=== PATIENT | female | born 1940 | race Asian ===

== ENCOUNTER 2019-07-18 09:08 | Inpatient (IN) | payer MEDICARE ==
[~2019-07-18] VITALS: Ht 157.5 cm; Wt 51.0 kg
[2019-07-18 08:48] VITALS: BP 179/91
[~2019-07-18 09:08] MED LIST: OXYC1TAB15 PO; OXYC1TAB6 PO; PARO30TA45 PO; TRAZ-118 PO
--- NOTE | 2019-07-18 10:00 | NUR ---
Admitted a 78 year old female who came in from [facility] ER due to back and hip pain. She arrived via stretcher at 0850 accompanied by transport personnel. She was alert, awake, oriented on room air with gomez catheter in place. Patient was placed in comfotable position, call light placed within reach, Dr. Guzman notified of admission.
[2019-07-18 11:02] VITALS: BP 159/90
--- NOTE | 2019-07-18 12:17 | HP ---
ADMIT DATE: 07/18/2019 HISTORY OF PRESENT ILLNESS: The patient is a 78-year-old Azeri [place] female patient who came to the Emergency Room complaining of pain in her left hip and left leg going on for the last 4-5 days. She also complained of the lower back pain. The pain has started about 4-5 days ago. The patient, however, is a very poor historian. She was investigated in the Emergency Room and her clinical complaints corresponds with the left sciatic nerve. The patient has significant pain with movement of her left hip and leg. She also has a history of recent falls. Her lab work was unremarkable. She has had multiple imaging modalities including a CT scan of the lumbar spine as well as CT scan of the pelvis and it showed that she has severe compression fracture of T12 with residual open fracture cleft. This results in mild focal kyphosis and moderate central canal stenosis at the T12-L1, additional central canal stenosis up to moderate at L4-L5. MRI could further assess stenosis if there is persistent concern. She has no pelvic fracture identified. Prominent left inguinal lymph nodes correlated with left lower extremity inflammation and others. The CT scan of the head showed no acute intracranial finding, mild atrophy and chronic microangiopathic white matter changes. X-ray, she had x-ray of her left femur, which showed no fracture. Her chest x-ray was mild right perihilar infiltrate, one 3-cm left upper lobe nodule, likely calcified granuloma. Given the severe pain and radiation to her left lower extremity and the findings of the CT scan of the lumbar spine. The patient was transferred to [facility] to arrange for an MRI to consult the interventional radiologist for vertebroplasty if deemed suitable. PAST MEDICAL HISTORY: Significant for hypertension, Parkinson disease. She is also known to have osteoarthritis, osteoporosis, anxiety, bipolar disorder, and dementia. PAST SURGICAL HISTORY: Significant for back surgery, left foot surgery, bilateral cataract extraction. ALLERGIES: She has no known drug allergies. FAMILY HISTORY: She has 7 brothers scattered all over the [place] according to her. Both her parents are . She has 3 sons. Her eldest son of heart attack. SOCIAL HISTORY: She is , lives with a friend. She does not smoke or drink alcohol. 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 MEDICATIONS: She is currently on following medications: She is on metoprolol tartrate 25 mg twice a day, hydrocodone/APAP ____ one tablet every 6 hours, gabapentin 300 mg at bedtime, duloxetine 60 mg daily, trazodone 150 mg at bedtime, aripiprazole for Abilify 2.5 mg twice a day. She is on hydroxyzine 25 mg every 4 hours as needed, Ambien 10 mg at bedtime, carbidopa/levodopa 25/100 three times a day. She is on potassium chloride 20 mEq once a day, ondansetron 4 mg every 8 hours and cholecalciferol 50,000 units once a week. REVIEW OF SYSTEMS: As per history of present illness. PHYSICAL EXAMINATION: GENERAL: On arrival to the Emergency Room, she looked somewhat pale, but no jaundice, cyanosis or thyromegaly. No jugular venous distention. No limb edema. VITAL SIGNS: Her heart rate was 70, blood pressure was 149/100, temperature 97.1, respiratory rate was 16, and oxygen saturation was 96% on room air. HEAD, EYES, EARS, NOSE AND THROAT: Showed normocephalic, atraumatic. NECK: Supple. HEART: Showed normal first and second heart sounds. No gallop, rub or murmur. CHEST: Clear to auscultation. No crepitation or rhonchi. ABDOMEN: Distended, soft, nontender. NEUROLOGIC: She is awake, alert, responding appropriately. All cranial nerves intact. EXTREMITIES: She moves all extremities without difficulty. She is mostly bed bound. LABORATORY DATA: Her lab work on arrival to the Emergency Room showed a white cell count 6200, hemoglobin 14.5, hematocrit 42, MCV 99 and platelet count 218,000. Her chemistry showed a serum sodium 140, potassium 3.9, chloride 103, bicarbonate 30, anion gap of 7, BUN 12, creatinine was 0.7, estimated GFR was 81 mL per minute. Her glucose was 96, calcium was 9.6, magnesium 2.3. Total bilirubin, AST, ALT, alkaline phosphatase were normal. Total protein was 8.7, albumin was 4.6, and lipase was 49. Her prothrombin time was 9.3, INR 0.9, aPTT 27 and D-dimer was 0.57 mg/dL. Urinalysis was essentially unremarkable. Toxic screen was negative. Her chest x-ray was basically showed mild right perihilar infiltrate, one 3 cm left upper lobe nodules, likely calcified granuloma. Her x-ray of the femur showed no fracture identified. There is mildly decreased femoral head and neck offset superolaterally. The joint spaces of the left hip and knee are well maintained. For the patient's age, a Chapman catheter is noted, correlate for mild femoroacetabular impingement. Head CT scan showed no acute intracranial finding, mild atrophy and chronic microangiopathic white matter changes. Her CT scan of the lumbar spine and pelvis showed the patient has severe compression fracture of T12 with residual open fracture cleft. This results in mild focal kyphosis and moderate central canal stenosis at T12-L1. The patient has additional central canal stenosis is up to moderate at L4-L5. MRI could further assess stenosis if there is persistent concern. She has no pelvic fracture identified. Prominent left inguinal lymph nodes. Given all the findings, the patient was transferred to [facility] to arrange for an MRI and to consult the interventional radiologist to see if she is suitable for kyphoplasty. MAGI KERNS MD DR: TREVON/katherine JOB#: [id number] / [id number]
--- NOTE | 2019-07-18 13:17 | RAD ---
MRI Lumbar Spine without contrast History: Compression fracture Technique: Multiplanar, multi sequential noncontrast MR imaging was performed of the lumbar spine. Comparison: CT exam the same day and also lumbar radiographs May 20, 2016 Findings: There is motion degradation. There is severe compression deformity of L1 as seen on CT, progression of height loss since the previous radiographs although degree of compression deformity present in 2017. Fracture is not associated with significant marrow edema. There is mild grade 1 anterior spondylolisthesis T12-L1. There is mild osseous retropulsion greater superiorly There is again fairly advanced degenerative disc disease at L3-4, to lesser degree L4-5, minimally of more superior levels and mild disc desiccation at L5-S1. Conus terminates near the superior aspect of L2. There is 3.3 cm T2 hyperintense lesion of the left kidney more likely a cyst. T12-L1: There is mild buckling of the ligamentum flavum and facet degenerative change. In combination with osseous retropulsion of the superior aspect of L1, there is overall mild narrowing of the lateral recesses bilaterally. Neural foramina are adequate. There is small hemangioma of the left T12 vertebral body. L1-L2: There is very shallow protrusion in the far right lateral recess. There is minimal osseous retropulsion of L1. There is minimal narrowing of the far lateral recesses bilaterally, central canal adequate. There is ghon-qy-dlacxhpr narrowing of the neural foramina bilaterally. L2-L3: There is facet degenerative change. There is very minimal disc osteophyte complex. There is mild narrowing of the far right lateral recess. There is very mild posterior narrowing of the left neural foramen, right neural foramen adequate. L3-L4: There is very minimal disc osteophyte complex. There is posterior annular tear. There is minimal buckling of the ligamentum flavum. There is minimal narrowing of the far lateral recesses bilaterally. There is moderate to severe narrowing of the left neural foramen by disc osteophyte complex and facet with contact exiting left L3 nerve root, minimal narrowing of the right neural foramen. L4-L5: There is moderate buckling of the ligamentum flavum and mild facet degenerative change. There is minimal disc osteophyte complex and bulge. There is moderate to severe spinal stenosis, some preserved subarachnoid space. There is lateral stenosis bilaterally greater on the right. There is moderate to severe neural foramina compromise bilaterally by facets and disc osteophyte complex. L5-S1: Spinal canal is adequate. There is bquy-rt-tsvjbvub right facet degenerative change, to a lesser degree on the left. Neural foramina are overall adequate. Impression: 1. There is old severe L1 compression deformity, progression of height loss since 2017 exam, not associated with significant marrow edema. There is mild osseous retropulsion. 2. There is moderate to severe spinal stenosis L4-5, some preserved subarachnoid space, lateral recess stenosis bilaterally. 3. There is multilevel lumbar degenerative disc disease, also mild spondylosis. 4. There is neural foramina compromise as stated greatest on the left at L3-4 and bilaterally at L4-5. Electronically signed by: Masoud Delgado MD (07/18/2019 1:14 PM) [id number]
[2019-07-18] MEDS: oxyCODONE/APAP 5/325 1 TAB TABLET PO PRN ×2 (14:07→19:35)
[2019-07-18] MEDS: PARoxetine 10 MG TABLET PO SCH (14:07)
[2019-07-18 15:03] VITALS: BP 103/70
[2019-07-18] MEDS ORDERED: METO25TA4 PO (16:02)
[2019-07-18] MEDS ORDERED: CARB1TAB22 PO (16:08)
[2019-07-18] MEDS ORDERED: DULO60CA45 PO (16:08)
[2019-07-18] MEDS ORDERED: ARIP2TAB3 PO (16:08)
[2019-07-18] MEDS ORDERED: GABA300C18 PO (16:08)
[2019-07-18] MEDS ORDERED: POTA20TA4 PO (16:09)
[2019-07-18] MEDS ORDERED: CHOL500021 PO (16:10)
[2019-07-18] MEDS ORDERED: ONDA-84 PO (16:10)
[2019-07-18] MEDS ORDERED: ONDANSETRON PF 4 MG/2 ML VIAL. IVP PRN (16:30)
[2019-07-18] MEDS: MORPHINE SULFATE 4 MG/ML VIAL. IV PRN (16:38)
[2019-07-18 19:40] VITALS: BP 125/75
[2019-07-18] MEDS: traZODone 50 MG TABLET. PO SCH (20:59)
[2019-07-18 23:41] VITALS: BP 103/70
[2019-07-19] MEDS: oxyCODONE/APAP 5/325 1 TAB TABLET PO PRN ×4 (03:22→16:39)
[2019-07-19 03:46] LABS: HEMATOCRIT 36.1 % (36.0-47.0); HEMOGLOBIN 12.5 g/dL (12.0-15.5); RED BLOOD COUNT 3.73 x10^6/uL (3.50-5.40); RED CELL DISTRIBUTION WIDTH 13.5 % (11.5-14.5); WHITE BLOOD COUNT 6.8 x10^3/uL (4.0-11.0)
[2019-07-19 03:55] VITALS: BP 137/83
[2019-07-19 04:03] LABS: PROTHROMBIN TIME PATIENT 12.3 SEC (11.7-14.0)
[2019-07-19 04:20] LABS: ALBUMIN 3.4 g/dL (3.4-5.0); ALBUMIN/GLOBULIN RATIO 1.1 (1.0-1.7); CALCIUM 8.4 mg/dL (8.5-10.1); CREATININE 0.8 mg/dL (0.6-1.0); GFR 69.7; POTASSIUM 3.6 mmol/L (3.5-5.1); TOTAL BILIRUBIN 0.6 mg/dL (0.2-1.0); TOTAL PROTEIN 6.6 g/dL (6.4-8.2)
[2019-07-19] MEDS: MORPHINE SULFATE 4 MG/ML VIAL. IV PRN ×4 (04:39→20:44)
[2019-07-19 07:40] VITALS: BP 135/84
[2019-07-19] MEDS: PARoxetine 10 MG TABLET PO SCH (08:10)
--- NOTE | 2019-07-19 10:20 | PN ---
DATE: SUBJECTIVE: The patient is resting, slightly propped up in bed, no apparent distress. She continued to complain of pain in her left lower back radiating to her left lower extremity, although the pain medication, said that it helped and she has slept well last night. She has had her MRI done yesterday, which basically showed that she has old severe L1 compression deformity with progression of height loss since 2017 exam, not associated with significant marrow edema. There is mild osseous retropulsion. There is efisxhgd-vc-jkayuf spinal stenosis at L4-L5, some preserved subarachnoid space, lateral recess stenosis bilaterally. There is multilevel lumbar degenerative disk disease. There is neural foramina compromise on the left at L3-L4 and bilateral L4-L5. I spoke with Dr. Kline and said that vertebroplasty cannot be done with this vertebra plana and also it is already old and I did consult Dr. Browning to see whether any surgical intervention can be done to help with her severe back pain that radiates down to her left lower extremity. PHYSICAL EXAMINATION: GENERAL: When I examined her this morning, she looked well and was clearly in no apparent respiratory distress. No pallor, jaundice, cyanosis or thyromegaly. No jugular venous distention. No limb edema. VITAL SIGNS: Her heart rate was 79, blood pressure was 135/84, temperature was 98, respiratory rate was 16, and oxygen saturation was 97%. The rest of clinical exam is stable. LABORATORY DATA: Her lab work showed a white cell count of 6800, hemoglobin 12.5, hematocrit 36, MCV 97 and platelet count of 190. Her BUN is 16, creatinine 0.8 with normal electrolytes. Her prothrombin time and INR are within normal range. ASSESSMENT: In summary, this is a 78-year-old female of [place] descent who presented with severe back pain radiating to left lower extremity. MRI showed that she has severe old L1 compression deformity with progression of height loss since 2017. She apparently has a riyngqsj-pb-zfosbd spinal stenosis at L4-L5. She has multilevel lumbar degenerative disk disease, also mild spondylosis. There is also neural foramina compromise as stated, greatest on the left at L3-L4 and bilateral L4-L5. 1. She has multiple other medical problems including: a. Parkinson's disease. b. Hypertension. c. Osteoarthritis and osteoporosis. d. Anxiety with bipolar disorder. PLAN: Continue with pain management. I will add SCDs for DVT prophylaxis and await the neurosurgical evaluation. MAGI KERNS MD DR: TREVON/katherine JOB#: [id number] / [id number]
[2019-07-19 11:09] VITALS: BP 125/73
[2019-07-19] MEDS ORDERED: methylPREDNISolone ACETATE 40 MG/ML VIAL. ONE (14:15)
[2019-07-19] MEDS ORDERED: BUPIVACAINE MPF 0.25% 10 ML VIAL. ONE (14:15)
[2019-07-19] MEDS ORDERED: methylPREDNISolone ACETATE 40 MG/ML VIAL. IM ONE (14:15)
[2019-07-19] MEDS ORDERED: BUPIVACAINE MPF 0.25% 10 ML VIAL. IJ ONE (14:15)
[2019-07-19 15:07] VITALS: BP 107/72
--- NOTE | 2019-07-19 15:45 | NUR ---
WORKMAN REMOVED PER DOCTORS ORDERS.
--- NOTE | 2019-07-19 15:47 | PDOC ---
Provider Note Provider Note Patient seen and examined consulted for compression fracture c/o back and left hip pain, reports improvement in hip pain after injection from Dr. Tripp ambulated in [place] today per RN Normal exam agree with brace Physical therapy Dr. Tripp following ROSEMARIE BARRERA MD July 19, 2019 15:47
--- NOTE | 2019-07-19 16:00 | NUR ---
DR MARIE HERE. INJECTION GIVEN IN LOWER BACK BY DR MARIE. ABDOMINAL BINDER WILL BE WORN WHEN UP TO PROVIDE ADDITIONAL SUPPORT. WORKMAN REMOVED PER DOCTORS ORDERS. NO PROBLEMS NOTED.
[2019-07-19] MEDS: tiZANidine 4 MG TABLET. PO SCH ×2 (16:06→21:07)
[2019-07-19] MEDS: LIDOCAINE (700MG/PATCH) PATCH. TD SCH (16:07)
--- NOTE | 2019-07-19 16:11 | NUR ---
SS following for discharge planning. SS reviewed pt chart and discussed with pt RN. Pt is from home and is currently on room air. PT/OT ordered. SS will continue to follow for discharge planning.
[2019-07-19 19:00] VITALS: BP 110/71
[2019-07-19] MEDS: PATCH REMOVAL. MC SCH (21:00)
[2019-07-19] MEDS: traZODone 50 MG TABLET. PO SCH (21:07)
[2019-07-19 23:00] VITALS: BP 121/80
[2019-07-20] MEDS: oxyCODONE/APAP 5/325 1 TAB TABLET PO PRN ×5 (01:45→21:47)
[2019-07-20 03:00] VITALS: BP 119/78
[2019-07-20] MEDS: MORPHINE SULFATE 4 MG/ML VIAL. IV PRN ×4 (04:36→23:03)
--- NOTE | 2019-07-20 04:39 | CONS ---
DATE OF CONSULTATION: 07/19/2019 ATTENDING PHYSICIAN: Dr. Guzman. REASON FOR CONSULTATION: The patient was seen at the request of Dr. Guzman for rehab evaluation. HISTORY OF PRESENT ILLNESS: This is a 78-year-old right-handed female admitted through the Emergency Room on 07/18/2019 with complaining of left hip and left leg pain going on for about 4-5 days. She apparently denies any fall. The patient had CT scan and MRI scan of her lumbar vertebrae, which revealed severe compression deformity of L1 vertebral body with progression of the height loss since the previous radiographs done in 2017 without any significant marrow edema, also grade 1 anterior spondylolisthesis at T12-L1 with mild osseous retropulsion greater superiorly, fairly advanced degenerative disk disease at L3-L4, L4-L5 and L5-S1 oglbhecx-pk-nxvbnn spinal stenosis at L4-L5, neural foraminal compromise greatest at L3-L4 on the left and bilaterally at L4-L5. The patient with known hypertension, Parkinson's disease, degenerative joint disease, osteoporosis, anxiety, bipolar disorder, dementia, left ankle surgery, back surgery, bilateral cataract extraction, not known allergic to any medication. The patient lives with her friend, had steps to manage. PHYSICAL EXAMINATION: On physical examination today revealed an elderly female. She is alert, oriented to place and person, follows commands appropriately, moves all 4 extremities voluntarily where she had 4+/5 grade muscle strength. Deep tendon reflexes are decreased overall with absent left knee jerk. She had equal perception of touch and pinprick sensation bilaterally. She had painful range of motion on both hip and knee joint. She had some deformity of left ankle with prominent left lateral malleolus, may be significant osteophyte that area. The patient had tenderness to palpation over sacroiliac joint area, left side more than right side. Straight leg raising test is negative bilaterally. The patient requires minimal assistance with bed mobility and transfers. Once up, she made a few steps using a roller walker. She is limping on her left foot while putting weight on her left foot. She had some tremors of her hands. ASSESSMENT: Elderly female with chronic lower back pain from degenerative disk disease and degenerative joint disease of lumbar vertebrae with old L1 vertebral body compression fracture and left lumbar radiculitis and also radiological evidence of neural foraminal and central spinal stenosis, mostly at L4-L5, no clinical evidence of ongoing lumbar radiculopathy. The patient with known hypertension, dementia, Parkinson's disease, degenerative joint disease, osteoporosis, anxiety, bipolar disorder and dementia, status post previous back surgery, left foot surgery, bilateral cataract extraction. RECOMMENDATIONS: At her request, I have injected painful left sacroiliac joint area under aseptic skin technique after skin preparation using alcohol swab with 2 mL of 0.25% Marcaine solution mixed with 1 mL of Depo-Medrol 40 mg per 1 mL solution and she tolerated the procedure satisfactorily without any side effects. To get her up as tolerated, hopefully home with outpatient or home health followup when medically stable. Dr. Guzman, I appreciate asking me to participate in the care of this interesting patient. I will be glad to follow her with you as needed for her rehabilitation. LISA MARIE MD DR: YOCASTA/katherine JOB#: [id number] / [id number] MAGI Serrano MD
[2019-07-20] MEDS: tiZANidine 4 MG TABLET. PO SCH ×3 (06:10→21:47)
[2019-07-20 07:00] VITALS: BP 127/87
[2019-07-20] MEDS: LIDOCAINE (700MG/PATCH) PATCH. TD SCH (08:47)
[2019-07-20] MEDS: PARoxetine 10 MG TABLET PO SCH (09:56)
--- NOTE | 2019-07-20 10:03 | PDOC ---
PROGRESS NOTES Subjective Subjective She feels weak overall and trigger point injection helped ease her pain. Objective Objective Vital Signs Date Time Temp Pulse Resp B/P (MAP) Pulse Ox O2 Delivery O2 Flow Rate FiO2 07/20/19 09:37 18 Room Air 07/20/19 07:00 98.6 81 127/87 (100) 97 98.6 Intake and Output 07/20/19 07:00 Intake Total 660 ml Output Total 1000 ml Balance -340 ml Intake Oral 660 ml Output Urine Total 1000 ml Physical Exam Physical Exam She is supine in bed and does not seem to be in any distress and she continues with some tremors of her hands. Plan Plan of Care To get her up as tolerated and to rehab or SNF when medically stable for c ontinued care. Comment Review of Relevant I have reviewed the following items syed (where applicable) has been applied. Labs Laboratory Tests Test 07/19/19 03:30 White Blood Count 6.8 x10^3/uL (4.0-11.0) Red Blood Count 3.73 x10^6/uL (3.50-5.40) Hemoglobin 12.5 g/dL (12.0-15.5) Hematocrit 36.1 % (36.0-47.0) Mean Corpuscular Volume 97 fL (79-100) Mean Corpuscular Hemoglobin 34 pg (25-35) Mean Corpuscular Hemoglobin Concent 35 g/dL (31-37) Red Cell Distribution Width 13.5 % (11.5-14.5) Platelet Count 190 x10^3/uL (140-400) Prothrombin Time 12.3 SEC (11.7-14.0) Prothromb Time International Ratio 1.0 (0.8-1.1) Sodium Level 139 mmol/L (136-145) Potassium Level 3.6 mmol/L (3.5-5.1) Chloride Level 105 mmol/L (98-107) Carbon Dioxide Level 26 mmol/L (21-32) Anion Gap 8 (6-14) Blood Urea Nitrogen 16 mg/dL (7-20) Creatinine 0.8 mg/dL (0.6-1.0) Estimated GFR (Cockcroft-Gault) 69.7 BUN/Creatinine Ratio 20 (6-20) Glucose Level 91 mg/dL (70-99) Calcium Level 8.4 mg/dL (8.5-10.1) Total Bilirubin 0.6 mg/dL (0.2-1.0) Aspartate Amino Transf (AST/SGOT) 18 U/L (15-37) Alanine Aminotransferase (ALT/SGPT) 27 U/L (14-59) Alkaline Phosphatase 63 U/L (46-116) Total Protein 6.6 g/dL (6.4-8.2) Albumin 3.4 g/dL (3.4-5.0) Albumin/Globulin Ratio 1.1 (1.0-1.7) Medications Current Medications Trazodone HCl (Desyrel) 50 mg QHS PO Last administered on 07/19/19at 21:07; Start 07/18/19 at 21:00 Paroxetine HCl (Paxil) 30 mg DAILY PO Last administered on 07/20/19at 09:56; Start 07/18/19 at 11:30 Oxycodone/ Acetaminophen (Percocet 5/325) 1 tab PRN Q4HRS PRN PO PAIN Last administered on 07/20/19at 08:48; Start 07/18/19 at 11:15 Morphine Sulfate (Morphine Sulfate) 4 mg PRN Q4HRS PRN IV MODERATE TO SEVERE PAIN Last administered on 07/20/19at 09:07; Start 07/18/19 at 16:30 Ondansetron HCl (Zofran) 4 mg PRN Q6HRS PRN IVP NAUSEA/VOMITING; Start 07/18/19 at 16:30 Tizanidine HCl (Zanaflex) 4 mg Q8HRS PO Last administered on 07/20/19at 06:10; Start 07/19/19 at 14:30 Methylprednisolone Acetate (DEPO-Medrol 40MG VIAL) 40 mg 1X ONCE IM ; Start 07/19/19 at 14:15; Stop 07/19/19 at 14:25; Status DC Bupivacaine HCl (Sensorcaine-Mpf 0.25%) 10 ml 1X ONCE IJ ; Start 07/19/19 at 14:15; Stop 07/19/19 at 14:25; Status DC Lidocaine (Lidoderm) 1 patch DAILY TD Last administered on 07/20/19at 08:47; Start 07/19/19 at 15:00 Miscellaneous (Lidoderm Patch Removal) 1 ea QHS MC ; Start 07/19/19 at 21:00 Active Scripts Active Percocet 5-325 Mg Tablet (Oxycodone/Acetaminophen) 1 Each Tablet 1 Tab PO Q4- 6HRS PRN Reported D3-50 (Cholecalciferol (Vitamin D3)) 50,000 Unit Capsule 1 Cap PO WEEKLY 28 Days Ondansetron Hcl 4 Mg Tablet 1 Tab PO PRN Q6HRS Klor-Con M20 (Potassium Chloride) 20 Meq Tab.er.prt 1 Tab PO DAILY 30 Days Carbidopa-Levodopa 25-100 Tab (Carbidopa/Levodopa) 1 Each Tablet 1 Tab PO TID 30 Days Abilify (Aripiprazole) 2 Mg Tablet 2.5 Tab PO BID 30 Days Duloxetine Hcl 60 Mg Capsule.dr 60 Mg PO DAILY Gabapentin (Gabapentin) 300 Mg Capsule 300 Mg PO HS Metoprolol Tartrate 25 Mg Tablet 1 Tab PO BID Oxycodon-Acetaminophen 2.5-325 (Oxycodone Hcl/Acetaminophen) 1 Each Tablet 1 Each PO PRN Trazodone Hcl 50 Mg Tablet 1 Tab PO QHS Paxil (Paroxetine Hcl) 30 Mg Tablet 1 Tab PO DAILY Vitals/I & O Vital Sign - Last 24 Hours 07/19/19 07/19/19 07/19/19 07/19/19 11:09 12:22 13:22 13:28 Temp 98.6 98.6 Pulse 84 Resp 16 12 12 12 B/P (MAP) 125/73 (90) Pulse Ox 97 O2 Delivery Room Air Room Air Room Air Room Air 07/19/19 07/19/19 07/19/19 07/19/19 13:58 15:07 16:39 17:39 Temp 98.1 98.1 Pulse 88 Resp 17 16 18 18 B/P (MAP) 107/72 (84) Pulse Ox 97 O2 Delivery Room Air Room Air Room Air Room Air 07/19/19 07/19/19 07/19/19 07/19/19 19:00 20:00 20:44 21:14 Temp 97.6 97.6 Pulse 81 Resp 18 B/P (MAP) 110/71 (84) Pulse Ox 94 94 94 O2 Delivery Room Air Room Air Room Air Room Air 07/19/19 07/20/19 07/20/19 07/20/19 23:00 01:45 02:45 03:00 Temp 97.9 98.4 97.9 98.4 Pulse 84 80 Resp 18 18 B/P (MAP) 121/80 (94) 119/78 (92) Pulse Ox 94 95 95 95 O2 Delivery Room Air Room Air Room Air Room Air 07/20/19 07/20/19 07/20/19 07/20/19 04:36 05:06 07:00 08:00 Temp 98.6 98.6 Pulse 81 Resp 15 B/P (MAP) 127/87 (100) Pulse Ox 95 95 97 O2 Delivery Room Air Room Air Room Air Room Air 07/20/19 07/20/19 07/20/19 07/20/19 08:48 09:07 09:37 09:37 Resp 17 18 18 18 O2 Delivery Room Air Room Air Room Air Room Air Intake and Output 07/19/19 07/19/19 07/20/19 15:00 23:00 07:00 Intake Total 240 ml 250 ml 170 ml Output Total 1000 ml Balance 240 ml -750 ml 170 ml Nutrition Consultation Dietary Evaluation: Recommendations by RD: Dietary education by RD, Increase Calorie Intake, Protein supplementation Comments: added ensure enlive supplements bid for extra 350 kcal, 20 g protein/serving Expected Outcomes/Goals: to meet >75% est nutr needs Malnutrition Findings: Body Fat Depletion (Non Severe: Mild Depletion Weight Status: Underweight LISA MARIE MD July 20, 2019 10:03
--- NOTE | 2019-07-20 10:42 | PN ---
DATE: 07/20/2019 SUBJECTIVE: The patient is resting, slightly propped up in bed, in no apparent distress. She continued to complain of pain, although she has had a left sacroiliac joint injection to help her pain. We discontinued her Chapman catheter and she was able to urinate without difficulty. She had a bowel movement this morning. She continued to have tremors and for some reason, she is not on any anti-parkinsonian. I would start her on Sinemet 25/100 three times a day and I asked Dr. Ashley to see her. PHYSICAL EXAMINATION: GENERAL: When I saw her this morning, she looked well and was clearly in no apparent respiratory distress. No pallor, jaundice, cyanosis or thyromegaly. No jugular venous distention or limb edema. VITAL SIGNS: Her heart rate was 81, blood pressure 127/87, temperature 98.6, respiratory rate was 16, and oxygen saturation was 97% on room air. HEAD, EYES, EARS, NOSE AND THROAT: Showed normocephalic, atraumatic. NECK: Supple. CARDIAC: Normal first and second heart sounds. No gallop, rub or murmur. CHEST: Clear to auscultation. No crepitation or rhonchi. ABDOMEN: Distended, soft, nontender. NEUROLOGIC: She is awake, alert, responding appropriately. She does have tremors in both upper extremities. The patient was able to walk yesterday with a walker. She was seen by Dr. Browning who did not recommend any surgical intervention. ASSESSMENT: 1. This is a 78-year-old [place] descent who presented with severe back pain radiating to her left lower extremity. MRI showed severe old L1 compression deformity with progression of height loss since 2017. She is not a candidate for vertebroplasty according to Dr. Kline. 2. She apparently has acaslets-hy-daodfy spinal stenosis at L4-L5. She has multiple lumbar degenerative disk disease and also mild spondylosis. There is also neural foramina compromise as stated, greatest on the left at L3-L4 and bilateral L4-L5. 3. The patient has multiple other medical problems including: A. Parkinson disease. B. Hypertension. C. Osteoarthritis and osteoporosis. D. Anxiety and bipolar disorder. PLAN: My plan is to continue with physical and occupational therapy. I would consult Dr. Ashley and consulted the high risk case manager to see if she qualifies to go to [facility] to continue the process of rehabilitation there. MAGI KERNS MD DR: TREVON/katherine JOB#: [id number] / [id number]
[2019-07-20 11:51] VITALS: BP 153/90
--- NOTE | 2019-07-20 12:46 | PDOC2 ---
NEUROLOGY CONSULT Date of Admission Date of Admission DATE: 07/20/19 TIME: 12:42 Reason for Consult Reason for Consult: Parkinson's Referring Physician Referring Physician: Dr. Guzman Source Source: Chart review, Patient History of Present Illness History of Present Illness The patient is a 78-year-old right-handed female who presented to the [facility] emergency department 3 days ago complaining of left hip and leg pain for 4 or 5 days as well as back pain. CT scans in the emergency room showed L1 compression fractures, as described below. She also has lumbar stenosis.She has been p rescribed a brace. I am asked to see her regarding Parkinson's. She's a very poor historian. I reviewed the old chart, looks like she was on Sinemet when she was hospitalized on the behavioral health unit 2 years ago. She denies hallucinations. She is very displeased by the tremor and would like to treat it. She does not know how long she has had it. 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 Current Medications Current Medications Current Medications Trazodone HCl (Desyrel) 50 mg QHS PO Last administered on 07/19/19at 21:07; Start 07/18/19 at 21:00 Paroxetine HCl (Paxil) 30 mg DAILY PO Last administered on 07/20/19at 09:56; Start 07/18/19 at 11:30 Oxycodone/ Acetaminophen (Percocet 5/325) 1 tab PRN Q4HRS PRN PO PAIN Last administered on 07/20/19at 08:48; Start 07/18/19 at 11:15 Morphine Sulfate (Morphine Sulfate) 4 mg PRN Q4HRS PRN IV MODERATE TO SEVERE PAIN Last administered on 07/20/19at 09:07; Start 07/18/19 at 16:30 Ondansetron HCl (Zofran) 4 mg PRN Q6HRS PRN IVP NAUSEA/VOMITING; Start 07/18/19 at 16:30 Tizanidine HCl (Zanaflex) 4 mg Q8HRS PO Last administered on 07/20/19at 06:10; Start 07/19/19 at 14:30 Methylprednisolone Acetate (DEPO-Medrol 40MG VIAL) 40 mg 1X ONCE IM ; Start 07/19/19 at 14:15; Stop 07/19/19 at 14:25; Status DC Bupivacaine HCl (Sensorcaine-Mpf 0.25%) 10 ml 1X ONCE IJ ; Start 07/19/19 at 14:15; Stop 07/19/19 at 14:25; Status DC Lidocaine (Lidoderm) 1 patch DAILY TD Last administered on 07/20/19at 08:47; Start 07/19/19 at 15:00 Miscellaneous (Lidoderm Patch Removal) 1 ea QHS MC ; Start 07/19/19 at 21:00 Active Scripts Active Percocet 5-325 Mg Tablet (Oxycodone/Acetaminophen) 1 Each Tablet 1 Tab PO Q4- 6HRS PRN Reported D3-50 (Cholecalciferol (Vitamin D3)) 50,000 Unit Capsule 1 Cap PO WEEKLY 28 Days Ondansetron Hcl 4 Mg Tablet 1 Tab PO PRN Q6HRS Klor-Con M20 (Potassium Chloride) 20 Meq Tab.er.prt 1 Tab PO DAILY 30 Days Carbidopa-Levodopa 25-100 Tab (Carbidopa/Levodopa) 1 Each Tablet 1 Tab PO TID 30 Days Abilify (Aripiprazole) 2 Mg Tablet 2.5 Tab PO BID 30 Days Duloxetine Hcl 60 Mg Capsule.dr 60 Mg PO DAILY Gabapentin (Gabapentin) 300 Mg Capsule 300 Mg PO HS Metoprolol Tartrate 25 Mg Tablet 1 Tab PO BID Oxycodon-Acetaminophen 2.5-325 (Oxycodone Hcl/Acetaminophen) 1 Each Tablet 1 Each PO PRN Trazodone Hcl 50 Mg Tablet 1 Tab PO QHS Paxil (Paroxetine Hcl) 30 Mg Tablet 1 Tab PO DAILY Allergies Allergies: Coded Allergies: No Known Drug Allergies (Unverified , 11/09/13) ROS Review of System Negative for fever, chills, weight loss, shortness of breath, chest pain, indigestion, hematochezia, melena, and dysuria. Full 14-point review of systems is negative. Physical Exam Physical Examination General: Well-developed, well-nourished female in no acute distress HEENT: Normocephalic andatraumatic. Tympanic membranes clear.Temporal arteriespulsatile and nontender.Fundoscopic exam unremarkable Neck: Supple without bruit, no meningismus Musculoskeletal: Stability:see neurologic. Gait exam:see neurologic. Tone:see neurologic.Strength:see neurologic. Neurological: Mental Status: orientation, memory, attention span/concentration, language, fund of knowledge: she knows the location, not the date, names, repeats, comprehends well. She is a very poor historian. Cranial Nerves:Pupils equal and reactive to light, extraocular movements areintact, visual scott are full to confrontation. Facial sensation is normal. There is no facial asymmetry. Vestibulo-ocular reflex is intact. Palate elevates and tongue protrudes in midline. All other cranial related problems are negative except as mentioned before.Reflexes:2+ and symmetric with flexor plantar responses. Motor:4/5 strength with normal tone and bulk. Coordination:Finger-nose finger and rber-hd-yomn testing are normal. Rapid alternating movements and fine finger movements are intact. There is resting tremor worse on the right with bilateral cogwheel rigidity. There is facial hypomimia. Gait:not tested. Sensory:Normal pinprick, vibration, light touch, proprioception. Vitals VITALS Vital Signs Date Time Temp Pulse Resp B/P (MAP) Pulse Ox O2 Delivery O2 Flow Rate FiO2 07/20/19 11:51 98.7 80 17 153/90 (111) 94 Room Air 98.7 Labs Labs Laboratory Tests Test 07/19/19 03:30 White Blood Count 6.8 x10^3/uL (4.0-11.0) Red Blood Count 3.73 x10^6/uL (3.50-5.40) Hemoglobin 12.5 g/dL (12.0-15.5) Hematocrit 36.1 % (36.0-47.0) Mean Corpuscular Volume 97 fL (79-100) Mean Corpuscular Hemoglobin 34 pg (25-35) Mean Corpuscular Hemoglobin Concent 35 g/dL (31-37) Red Cell Distribution Width 13.5 % (11.5-14.5) Platelet Count 190 x10^3/uL (140-400) Prothrombin Time 12.3 SEC (11.7-14.0) Prothromb Time International Ratio 1.0 (0.8-1.1) Sodium Level 139 mmol/L (136-145) Potassium Level 3.6 mmol/L (3.5-5.1) Chloride Level 105 mmol/L (98-107) Carbon Dioxide Level 26 mmol/L (21-32) Anion Gap 8 (6-14) Blood Urea Nitrogen 16 mg/dL (7-20) Creatinine 0.8 mg/dL (0.6-1.0) Estimated GFR (Cockcroft-Gault) 69.7 BUN/Creatinine Ratio 20 (6-20) Glucose Level 91 mg/dL (70-99) Calcium Level 8.4 mg/dL (8.5-10.1) Total Bilirubin 0.6 mg/dL (0.2-1.0) Aspartate Amino Transf (AST/SGOT) 18 U/L (15-37) Alanine Aminotransferase (ALT/SGPT) 27 U/L (14-59) Alkaline Phosphatase 63 U/L (46-116) Total Protein 6.6 g/dL (6.4-8.2) Albumin 3.4 g/dL (3.4-5.0) Albumin/Globulin Ratio 1.1 (1.0-1.7) Images Images MRI Lumbar Spine without contrast History: Compression fracture Technique: Multiplanar, multi sequential noncontrast MR imaging was performed of the lumbar spine. Comparison: CT exam the same day and also lumbar radiographs May 20, 2016 Findings: There is motion degradation. There is severe compression deformity of L1 as seen on CT, progression of height loss since the previous radiographs although degree of compression deformity present in 2017. Fracture is not associated with significant marrow edema. There is mild grade 1 anterior spondylolisthesis T12-L1. There is mild osseous retropulsion greater superiorly There is again fairly advanced degenerative disc disease at L3-4, to lesser degree L4-5, minimally of more superior levels and mild disc desiccation at L5-S1. Conus terminates near the superior aspect of L2. There is 3.3 cm T2 hyperintense lesion of the left kidney more likely a cyst. T12-L1: There is mild buckling of the ligamentum flavum and facet degenerative change. In combination with osseous retropulsion of the superior aspect of L1, there is overall mild narrowing of the lateral recesses bilaterally. Neural foramina are adequate. There is small hemangioma of the left T12 vertebral body. L1-L2: There is very shallow protrusion in the far right lateral recess. There is minimal osseous retropulsion of L1. There is minimal narrowing of the far lateral recesses bilaterally, central canal adequate. There is iszx-mq-jbinvyju narrowing of the neural foramina bilaterally. L2-L3: There is facet degenerative change. There is very minimal disc osteophyte complex. There is mild narrowing of the far right lateral recess. There is very mild posterior narrowing of the left neural foramen, right neural foramen adequate. L3-L4: There is very minimal disc osteophyte complex. There is posterior annular tear. There is minimal buckling of the ligamentum flavum. There is minimal narrowing of the far lateral recesses bilaterally. There is moderate to severe narrowing of the left neural foramen by disc osteophyte complex and facet with contact exiting left L3 nerve root, minimal narrowing of the right neural foramen. L4-L5: There is moderate buckling of the ligamentum flavum and mild facet degenerative change. There is minimal disc osteophyte complex and bulge. There is moderate to severe spinal stenosis, some preserved subarachnoid space. There is lateral stenosis bilaterally greater on the right. There is moderate to severe neural foramina compromise bilaterally by facets and disc osteophyte complex. L5-S1: Spinal canal is adequate. There is bftd-tl-tosjbzji right facet degenerative change, to a lesser degree on the left. Neural foramina are overall adequate. Impression: 1. There is old severe L1 compression deformity, progression of height loss since 2017 exam, not associated with significant marrow edema. There is mild osseous retropulsion. 2. There is moderate to severe spinal stenosis L4-5, some preserved subarachnoid space, lateral recess stenosis bilaterally. 3. There is multilevel lumbar degenerative disc disease, also mild spondylosis. 4. There is neural foramina compromise as stated greatest on the left at L3-4 and bilaterally at L4-5. CT HEAD WITHOUT CONTRAST 07/17, [facility] HISTORY: Headache, weakness, Parkinson's. TECHNIQUE: Computed tomography of the head was performed without intravenous contrast. One or more of the following individualized dose reduction techniques were utilized for this examination: 1. Automated exposure control. 2. Adjustment of the mA and/or kV according to patient size. 3. Use of iterative reconstruction technique. COMPARISON: None. FINDINGS: There is no intracranial hemorrhage. Hypoattenuation within the periventricular white matter indicates mild chronic microangiopathic change. Note is made of a incidental choroidal fissure cyst on the left. There are bilateral basal ganglia calcifications. Prominence of the lateral ventricles and hemispheric sulci indicates mild atrophy.1` There is mucosal thickening scattered throughout the ethmoid air cells. There are changes of right cataract surgery. The temporal bones are unremarkable. The calvarium reveals no suspicious lesions. There are atherosclerotic calcifications of the internal carotid and vertebral arteries. IMPRESSION: 1. No acute intracranial findings. 2. Mild atrophy and chronic microangiopathic white matter change. 1. CT lumbar spine without contrast. 07/17, [facility] 2. CT pelvis without contrast. HISTORY: Low back and pelvic pain. TECHNIQUE: CT of the lumbar spine and pelvis was performed without intravenous contrast. One or more of the following individualized dose reduction techniques were utilized for this examination: 1. Automated exposure control. 2. Adjustment of the mA and/or kV according to patient size. 3. Use of iterative reconstruction technique. COMPARISON: None. FINDINGS: There is is a severe compression deformity resulting in vertebra plana at L1. A residual fracture cleft is present anteriorly. Retropulsion of the superior aspect of the vertebral body measures 5 mm. This results in moderate central canal stenosis at T12-L1. There is mild focal kyphosis. No additional fractures are identified. Degenerative disc disease is moderate to severe at L3-4 and mild to moderate elsewhere. L5-S1 is preserved. Osteopenia is at least moderate. At L1-2, central canal stenosis is mild. Neural foraminal stenosis is mild to moderate bilaterally. At L2-3, there is a small posterior disc bulge. There is mild to moderate left neural foraminal stenosis. At L3-4, there is a small posterior disc bulge. Facet and ligamentum flavum hypertrophy is mild. Central canal stenosis appears mild. There is mild to moderate left neural foraminal stenosis. At L4-5, there is a moderate posterior disc bulge. Facet and ligamentum flavum hypertrophy is moderate. Central canal stenosis appears moderate. At L5-S1, there is a small posterior disc bulge. Facet osteoarthritis is moderate. No pelvic fractures are identified. There is no fracture within either proximal femur. Sacroiliac osteoarthritis is mild bilaterally. The joint spaces of both hips are maintained. There is mildly decreased femoral head/neck offset bilaterally. There is no acetabular retroversion. A prominent left inguinal lymph node measures 15 x 11 mm. No other enlarged nodes are seen. The uterus is surgically absent. The bladder is decompressed by a Chapman catheter. A surgical clip is noted in the left lower quadrant. IMPRESSION: 1. Severe compression fracture at T12 with a residual open fracture cleft. This results in mild focal kyphosis and moderate central canal stenosis at T12-L1. 2. Additional central canal stenosis is up to moderate at L4-5. MRI could further assess stenosis if there is persistent concern. 3. No pelvic fractures are identified. 4. Prominent left inguinal lymph node. Correlate for left lower extremity inflammation or other causes. Assessment/Plan Assessment/Plan Impression: Parkinson's disease Dementia Lumbar 1 compression fracture, moderate to severe spinal stenosis L4-5, multilevel lumbar degenerative disc disease, mild spondylosis, multilevel neural foramina compromise greatest on the left at L3-4 and bilaterally at L4-5. Hypertension, osteoarthritis, osteoporosis, anxiety, and bipolar disorder. Recommendations: I discussed risk and the benefits, alternatives, side effects, and will rechallenge with Sinemet. With her psychiatric disease, we need to watch out for hallucinations and other side effects. Agree with conservative management of the lumbar compression fracture, which is not acute. Consider stay on senior care unit. Thank you for letting me help with the patient's care. DANAY AMAYA MD July 20, 2019 12:46
--- NOTE | 2019-07-20 13:45 | NUR ---
SS following for discharge planning. SS reviewed pt chart and discussed with pt RN. Pt is currently on room air. PT/OT evaluated and recommended correction unit. SS met with pt and discussed correction unit and discharge planning. Pt agreeable to correction unit at [facility], ; fax [phone], and [facility], ; fax [phone]. SS phoned and faxed referrals. COVID19 test requested. Pt's RN notified.
[2019-07-20 15:55] VITALS: BP 150/96
[2019-07-20] MEDS: CARBIDOPA/LEVODOPA 25/100MG TABLET PO SCH (16:30)
--- NOTE | 2019-07-20 18:01 | NUR ---
Received patient transfer from [address] [place] [address], will continue to monitor patient.
[2019-07-20 19:27] VITALS: BP 152/100
[2019-07-20] MEDS: PATCH REMOVAL. MC SCH (21:00)
[2019-07-20] MEDS: traZODone 50 MG TABLET. PO SCH (21:47)
[2019-07-20 22:42] VITALS: BP 118/69
[2019-07-21 03:00] VITALS: BP 148/94
[2019-07-21 06:59] VITALS: BP 144/91
--- NOTE | 2019-07-21 07:12 | NUR ---
IP: Pt is COVID negative.
[2019-07-21] MEDS: PARoxetine 10 MG TABLET PO SCH (08:18)
[2019-07-21] MEDS: CARBIDOPA/LEVODOPA 25/100MG TABLET PO SCH (08:18)
[2019-07-21] MEDS: tiZANidine 4 MG TABLET. PO SCH (08:18)
[2019-07-21] MEDS: LIDOCAINE (700MG/PATCH) PATCH. TD SCH (08:19)
[2019-07-21] MEDS: MORPHINE SULFATE 4 MG/ML VIAL. IV PRN (08:20)
--- NOTE | 2019-07-21 09:02 | PDOC ---
PROGRESS NOTES Subjective Subjective She feels better. Objective Objective Vital Signs Date Time Temp Pulse Resp B/P (MAP) Pulse Ox O2 Delivery O2 Flow Rate FiO2 07/21/19 08:35 98 Room Air 07/21/19 06:59 97.7 82 16 144/91 (108) 97.7 Intake and Output 07/21/19 07:00 Intake Total 320 ml Balance 320 ml Intake Oral 320 ml # Voids 6 # Bowel Movements 2 Physical Exam Physical Exam She is alert,supine in bed but she got up and walked with roller walker with some limping on her left foot. Plan Plan of Care Agree with plans for SNF for continued care to get her confidence with her mobility and self care,if she qualifies,otherwise to home with home health f ollow up. Comment Review of Relevant I have reviewed the following items syed (where applicable) has been applied. Labs Laboratory Tests Test 07/20/19 16:35 Coronavirus (COVID-19)(PCR) Not detected (NOT DETECT.) Laboratory Tests Test 07/20/19 16:35 Coronavirus (COVID-19)(PCR) Not detected (NOT DETECT.) Medications Current Medications Trazodone HCl (Desyrel) 50 mg QHS PO Last administered on 07/20/19at 21:47; Start 07/18/19 at 21:00 Paroxetine HCl (Paxil) 30 mg DAILY PO Last administered on 07/21/19at 08:18; Start 07/18/19 at 11:30 Oxycodone/ Acetaminophen (Percocet 5/325) 1 tab PRN Q4HRS PRN PO PAIN Last administered on 07/20/19at 21:47; Start 07/18/19 at 11:15 Morphine Sulfate (Morphine Sulfate) 4 mg PRN Q4HRS PRN IV MODERATE TO SEVERE PAIN Last administered on 07/21/19at 08:20; Start 07/18/19 at 16:30 Ondansetron HCl (Zofran) 4 mg PRN Q6HRS PRN IVP NAUSEA/VOMITING; Start 07/18/19 at 16:30 Tizanidine HCl (Zanaflex) 4 mg Q8HRS PO Last administered on 07/21/19at 08:18; Start 07/19/19 at 14:30 Methylprednisolone Acetate (DEPO-Medrol 40MG VIAL) 40 mg 1X ONCE IM ; Start 07/19/19 at 14:15; Stop 07/19/19 at 14:25; Status DC Bupivacaine HCl (Sensorcaine-Mpf 0.25%) 10 ml 1X ONCE IJ ; Start 07/19/19 at 14:15; Stop 07/19/19 at 14:25; Status DC Lidocaine (Lidoderm) 1 patch DAILY TD Last administered on 07/21/19at 08:19; Start 07/19/19 at 15:00 Miscellaneous (Lidoderm Patch Removal) 1 ea QHS MC Last administered on 07/20/19at 21:00; Start 07/19/19 at 21:00 Carbidopa/Levodopa (Sinemet 25/100) 1 tab [id number] PO Last administered on at 08:18; Start 07/20/19 at 16:00 Active Scripts Active Percocet 5-325 Mg Tablet (Oxycodone/Acetaminophen) 1 Each Tablet 1 Tab PO Q4- 6HRS PRN Reported D3-50 (Cholecalciferol (Vitamin D3)) 50,000 Unit Capsule 1 Cap PO WEEKLY 28 Days Ondansetron Hcl 4 Mg Tablet 1 Tab PO PRN Q6HRS Klor-Con M20 (Potassium Chloride) 20 Meq Tab.er.prt 1 Tab PO DAILY 30 Days Carbidopa-Levodopa 25-100 Tab (Carbidopa/Levodopa) 1 Each Tablet 1 Tab PO TID 30 Days Abilify (Aripiprazole) 2 Mg Tablet 2.5 Tab PO BID 30 Days Duloxetine Hcl 60 Mg Capsule.dr 60 Mg PO DAILY Gabapentin (Gabapentin) 300 Mg Capsule 300 Mg PO HS Metoprolol Tartrate 25 Mg Tablet 1 Tab PO BID Oxycodon-Acetaminophen 2.5-325 (Oxycodone Hcl/Acetaminophen) 1 Each Tablet 1 Each PO PRN Trazodone Hcl 50 Mg Tablet 1 Tab PO QHS Paxil (Paroxetine Hcl) 30 Mg Tablet 1 Tab PO DAILY Vitals/I & O Vital Sign - Last 24 Hours 07/20/19 07/20/19 07/20/19 07/20/19 09:07 09:37 09:37 11:51 Temp 98.7 98.7 Pulse 80 Resp 18 18 18 17 B/P (MAP) 153/90 (111) Pulse Ox 94 O2 Delivery Room Air Room Air Room Air Room Air 07/20/19 07/20/19 07/20/19 07/20/19 13:29 14:29 15:55 16:30 Temp 98.3 98.3 Pulse 88 Resp 18 18 16 18 B/P (MAP) 150/96 (114) Pulse Ox 97 O2 Delivery Room Air Room Air Room Air Room Air 07/20/19 07/20/19 07/20/19 07/20/19 17:29 18:08 18:22 19:27 Temp 98.3 98.3 Pulse 82 Resp 18 16 B/P (MAP) 152/100 (117) Pulse Ox 97 96 O2 Delivery Room Air Room Air Room Air Room Air 07/20/19 07/20/19 07/20/19 07/20/19 19:44 22:42 22:50 23:03 Temp 98.0 98.0 Pulse 80 Resp 16 20 B/P (MAP) 118/69 (85) Pulse Ox 96 96 96 O2 Delivery Room Air Room Air Room Air Room Air 07/21/19 07/21/19 07/21/19 07/21/19 03:00 06:59 07:25 08:20 Temp 98.3 97.7 98.3 97.7 Pulse 86 82 Resp 16 16 B/P (MAP) 148/94 (112) 144/91 (108) Pulse Ox 97 98 98 O2 Delivery Room Air Room Air Room Air Room Air 07/21/19 08:35 Pulse Ox 98 O2 Delivery Room Air Intake and Output 07/20/19 07/20/19 07/21/19 15:00 23:00 07:00 Intake Total 100 ml 220 ml Balance 100 ml 220 ml Nutrition Consultation Dietary Evaluation: Recommendations by RD: Dietary education by RD, Increase Calorie Intake, Protein supplementation Comments: added ensure enlive supplements bid for extra 350 kcal, 20 g protein/serving Expected Outcomes/Goals: to meet >75% est nutr needs Malnutrition Findings: Body Fat Depletion (Non Severe: Mild Depletion Weight Status: Underweight LISA MARIE MD July 21, 2019 09:02
--- NOTE | 2019-07-21 09:23 | PDOC ---
PROGRESS NOTES Assessment Parkinson's disease, Sinemet resumed Dementia Lumbar 1 compression fracture, moderate to severe spinal stenosis L4-5, multilevel lumbar degenerative disc disease, mild spondylosis, multilevel neur al foramina compromise greatest on the left at L3-4 and bilaterally at L4-5. Hypertension, osteoarthritis, osteoporosis, anxiety, and bipolar disorder. Plan Continue low dose of Sinemet. With her psychiatric disease, we need to watch out for hallucinations and other side effects. Agree with conservative management of the lumbar compression fracture, which is not acute. [facility] unit. If she is still here on 07/23, I will reassess, otherwise follow up with me in one month. Subjective no complaints Objective Vital Signs Date Time Temp Pulse Resp B/P (MAP) Pulse Ox O2 Delivery O2 Flow Rate FiO2 07/21/19 08:35 98 Room Air 07/21/19 06:59 97.7 82 16 144/91 (108) 97.7 Intake and Output 07/21/19 07:00 Intake Total 320 ml Balance 320 ml Intake Oral 320 ml # Voids 6 # Bowel Movements 2 PHYSICAL EXAM Alert. Oriented to place and person. PERRL. EOMI. CN: no focal findings. Muscle tone: normal. Muscle strength: 4/5 strength DTR: 2+ Plantar reflex: flexor Gait: not examined in bed. Sensory exam: no abnormal findings. No cerebellar signs elicited. Resting tremor worse on the right with bilateral cogwheel rigidity. There is facial hypomimia. Review of Relevant I have reviewed the following items syed (where applicable) has been applied. Labs Laboratory Tests Test 07/20/19 16:35 Coronavirus (COVID-19)(PCR) Not detected (NOT DETECT.) Laboratory Tests Test 07/20/19 16:35 Coronavirus (COVID-19)(PCR) Not detected (NOT DETECT.) Medications Current Medications Trazodone HCl (Desyrel) 50 mg QHS PO Last administered on 07/20/19at 21:47; Start 07/18/19 at 21:00 Paroxetine HCl (Paxil) 30 mg DAILY PO Last administered on 07/21/19at 08:18; Start 07/18/19 at 11:30 Oxycodone/ Acetaminophen (Percocet 5/325) 1 tab PRN Q4HRS PRN PO PAIN Last administered on 07/20/19at 21:47; Start 07/18/19 at 11:15 Morphine Sulfate (Morphine Sulfate) 4 mg PRN Q4HRS PRN IV MODERATE TO SEVERE PAIN Last administered on 07/21/19at 08:20; Start 07/18/19 at 16:30 Ondansetron HCl (Zofran) 4 mg PRN Q6HRS PRN IVP NAUSEA/VOMITING; Start 07/18/19 at 16:30 Tizanidine HCl (Zanaflex) 4 mg Q8HRS PO Last administered on 07/21/19at 08:18; Start 07/19/19 at 14:30 Methylprednisolone Acetate (DEPO-Medrol 40MG VIAL) 40 mg 1X ONCE IM ; Start 07/19/19 at 14:15; Stop 07/19/19 at 14:25; Status DC Bupivacaine HCl (Sensorcaine-Mpf 0.25%) 10 ml 1X ONCE IJ ; Start 07/19/19 at 14:15; Stop 07/19/19 at 14:25; Status DC Lidocaine (Lidoderm) 1 patch DAILY TD Last administered on 07/21/19at 08:19; Start 07/19/19 at 15:00 Miscellaneous (Lidoderm Patch Removal) 1 ea QHS MC Last administered on 07/20/19at 21:00; Start 07/19/19 at 21:00 Carbidopa/Levodopa (Sinemet 25/100) 1 tab [id number] PO Last administered on 07/21/19at 08:18; Start 07/20/19 at 16:00 Active Scripts Active Percocet 5-325 Mg Tablet (Oxycodone/Acetaminophen) 1 Each Tablet 1 Tab PO Q4- 6HRS PRN Reported D3-50 (Cholecalciferol (Vitamin D3)) 50,000 Unit Capsule 1 Cap PO WEEKLY 28 Days Ondansetron Hcl 4 Mg Tablet 1 Tab PO PRN Q6HRS Klor-Con M20 (Potassium Chloride) 20 Meq Tab.er.prt 1 Tab PO DAILY 30 Days Carbidopa-Levodopa 25-100 Tab (Carbidopa/Levodopa) 1 Each Tablet 1 Tab PO TID 30 Days Abilify (Aripiprazole) 2 Mg Tablet 2.5 Tab PO BID 30 Days Duloxetine Hcl 60 Mg Capsule.dr 60 Mg PO DAILY Gabapentin (Gabapentin) 300 Mg Capsule 300 Mg PO HS Metoprolol Tartrate 25 Mg Tablet 1 Tab PO BID Oxycodon-Acetaminophen 2.5-325 (Oxycodone Hcl/Acetaminophen) 1 Each Tablet 1 Each PO PRN Trazodone Hcl 50 Mg Tablet 1 Tab PO QHS Paxil (Paroxetine Hcl) 30 Mg Tablet 1 Tab PO DAILY Vitals/I & O Vital Sign - Last 24 Hours 07/20/19 07/20/19 07/20/19 07/20/19 09:37 09:37 11:51 13:29 Temp 98.7 98.7 Pulse 80 Resp 18 18 17 18 B/P (MAP) 153/90 (111) Pulse Ox 94 O2 Delivery Room Air Room Air Room Air Room Air 07/20/19 07/20/19 07/20/19 07/20/19 14:29 15:55 16:30 17:29 Temp 98.3 98.3 Pulse 88 Resp 18 16 18 18 B/P (MAP) 150/96 (114) Pulse Ox 97 O2 Delivery Room Air Room Air Room Air Room Air 07/20/19 07/20/19 07/20/19 07/20/19 18:08 18:22 19:27 19:44 Temp 98.3 98.3 Pulse 82 Resp 16 B/P (MAP) 152/100 (117) Pulse Ox 97 96 O2 Delivery Room Air Room Air Room Air Room Air 07/20/19 07/20/19 07/20/19 07/21/19 22:42 22:50 23:03 03:00 Temp 98.0 98.3 98.0 98.3 Pulse 80 86 Resp 16 20 16 B/P (MAP) 118/69 (85) 148/94 (112) Pulse Ox 96 96 96 97 O2 Delivery Room Air Room Air Room Air Room Air 07/21/19 07/21/19 07/21/19 07/21/19 06:59 07:25 08:20 08:35 Temp 97.7 97.7 Pulse 82 Resp 16 B/P (MAP) 144/91 (108) Pulse Ox 98 98 98 O2 Delivery Room Air Room Air Room Air Room Air Intake and Output 07/20/19 07/20/19 07/21/19 15:00 23:00 07:00 Intake Total 100 ml 220 ml Balance 100 ml 220 ml DANAY AMAYA MD July 21, 2019 09:23
--- NOTE | 2019-07-21 09:38 | SNU/HH DC ---
DISCHARGE ORDERS DISCHARGE INFORMATION: DISCHARGE DATE: July 21, 2019 FINAL DIAGNOSIS Left sided sciatica T11 Compression fracture old multiple levels neuroforamen stenosis Parkinson disease Bipolar disorder CONDITION ON DISCHARGE: Stable CODE STATUS: Code Status: Full MCFP: SNF STAY <30 DAYS: Yes POST DISCHARGE ORDERS: ACTIVITY ORDERS: Activity as tolerated WEIGHT BEARING STATUS: Other, see below BATHING ORDERS: Shower-keep dressing dry DIET AFTER DISCHARGE: Regular WOUND/INCISION CARE: Ice to area for comfort TREATMENT/EQUIPMENT ORDERS: ADAPTIVE EQUIPMENT NEEDED: None Physical Therapy For: Evalulation/Treatment Occupational Therapy For: Evaluation/Treatment DISCHARGE MEDICATIONS: Home Meds Active Scripts Oxycodone/Apap 5-325 (PERCOCET 5-325 MG TABLET ) 1 Each Tablet, 1 TAB PO Q4- 6HRS PRN for PAIN, #40 TAB Prov:ALMA ROSA MARIA MD 11/09/13 Reported Medications Cholecalciferol (Vitamin D3) (D3-50) 50,000 Unit Capsule, 1 CAP PO WEEKLY for supplement for 28 Days, #4 CAP 0 Refills 07/18/19 Ondansetron Hcl (ONDANSETRON HCL) 4 Mg Tablet, 1 TAB PO PRN Q6HRS for nausea, #10 TAB 1 Refill 07/18/19 Potassium Chloride (KLOR-CON M20) 20 Meq Tab.er.prt, 1 TAB PO DAILY for supplement for 30 Days, #30 TAB 0 Refills 07/18/19 Carbidopa/Levodopa (CARBIDOPA-LEVODOPA 25-100 TAB) 1 Each Tablet, 1 TAB PO TID for Parkinsons for 30 Days, #90 TAB 0 Refills 07/18/19 Aripiprazole (ABILIFY) 2 Mg Tablet, 2.5 TAB PO BID for depression for 30 Days, #150 TAB 0 Refills 07/18/19 Duloxetine Hcl (DULOXETINE HCL) 60 Mg Capsule.dr, 60 MG PO DAILY for depression, CAP 07/18/19 Gabapentin (GABAPENTIN ) 300 Mg Capsule, 300 MG PO HS for NEUROGENIC PAIN, CAP 07/18/19 Metoprolol Tartrate (METOPROLOL TARTRATE) 25 Mg Tablet, 1 TAB PO BID for hyper tension, #180 TAB 1 Refill 07/18/19 Oxycodone Hcl/Acetaminophen (OXYCODON-ACETAMINOPHEN 2.5-325) 1 Each Tablet, 1 EACH PO PRN for PAIN, TAB 0 Refills 11/09/13 Trazodone Hcl (TRAZODONE HCL) 50 Mg Tablet, 1 TAB PO QHS, #30 TAB 11/09/13 Paroxetine Hcl (PAXIL) 30 Mg Tablet, 1 TAB PO DAILY, #30 TAB 1 Refill 11/09/13 MAGI KERNS MD July 21, 2019 09:38
--- NOTE | 2019-07-21 10:06 | PN ---
DATE: 07/21/2019 SUBJECTIVE: The patient is sitting comfortably in her chair, in no apparent distress. Nursing staff said she did well. She was able to walk with a walker. Her pain is much better controlled. She was seen yesterday by Dr. Ashley who started her on low dose Sinemet, started cautiously as she has bipolar disorder. PHYSICAL EXAMINATION: GENERAL: When I examined her this morning, she looked well and was clearly in no apparent respiratory distress. No pallor, jaundice, cyanosis, or thyromegaly. No jugular venous distention. No limb edema. VITAL SIGNS: Her heart rate was 82, blood pressure was 144/91, temperature was 97.7, respiratory rate was 16, and oxygen saturation was 98% on room air. The rest of clinical exam is stable. Her COVID test by PCR was negative. ASSESSMENT: 1. This is a 78-year-old female patient of [place] descent who presented with severe back pain radiating to the left lower extremity. MRI showed severe old L1 compression fracture with progressive height loss since 2017. She is not a candidate for vertebroplasty, according to Dr. Helm. 2. She apparently has moderate to severe spinal stenosis at L4-5. She has also multiple lumbar degenerative disk disease and also mild spondylosis. There is also neural foramina compromise as stated, greatest at L3-4 on the left side and bilateral L4-5. 3. The patient has multiple other medical problems including: A. Parkinson disease. B. Hypertension. C. Osteoarthritis and osteoporosis. D. Anxiety and bipolar disorder. PLAN: Obviously to continue with pain management. Continue with physical and occupational therapy. All her orders for discharge are ready, if she was accepted to one of the fdc facility. Otherwise, she can be discharged home. MAGI KERNS MD DR: TREVON/katherine JOB#: [id number] / [id number]
[2019-07-21 10:14] VITALS: BP 115/76
--- NOTE | 2019-07-21 11:11 | NUR ---
SS following up with discharge planning. Pt accepted at [facility], ; fax [phone]. Discharge orders received. SS phoned and faxed discharge orders and negative COVID result to [facility]. Marielena from [facility] reported that she was in the process of getting ICD10 codes and finishing up with insurance and would contact SS with a transport time. Pt and pt's RN notified.
--- NOTE | 2019-07-21 13:27 | NUR ---
SS following up with discharge planning. [facility] contacted SS and notified that pt will be transported at 1400.
--- NOTE | 2019-07-21 14:15 | NUR ---
Discharge Note: MANUEL JON Discharge instructions and discharge home medications reviewed with Other facility and a copy given. All questions have been answered and understanding verbalized. Report given to JACK Morrison at [facility]. The following instructions and handouts were given: information about plan of care, medications, history, follow up appointments, etc. Discontinued lines and drains: IV line in right forearm removed, catheter tip intact. Patient discharged to [facility] with transport conductor, wheelchair used for mobility to discharge vehicle.
--- NOTE | 2019-08-04 11:50 | DS ---
DATE OF DISCHARGE: 07/21/2019 HOSPITAL COURSE: The patient is a 78-year-old [place] Polish female patient who was seen originally in the Emergency Room of [facility] with complaining of pain in her left hip and left leg going on for the last 4-5 days. She also complained of lower back pain. The patient, however, is a very poor historian. She was investigated in the Emergency Room and her clinical complaints corresponds with left sciatic nerve. The patient was found to have significant pain with movement of her left hip and leg. She has also had history of recent fall. Her lab work was unremarkable. She has had multiple imaging modalities including a CT scan of the lumbar spine as well as CT scan of the pelvis that showed that she has severe compression fracture of T12 with residual open fracture, left. This results in mild focal kyphosis and moderate central canal stenosis at T12-L1, additional central canal stenosis up to moderate at L4-L5. MRI could further assess the stenosis. There is persistent concern given the severity of pain and the CT scan finding, a decision was made to transfer her to [facility] to arrange for an MRI and to consult interventional radiologist for vertebroplasty if deemed suitable. She did have an MRI of the lumbar spine, which showed that there is old severe L1 compression deformity, progression of height loss since 2017 exam, not associated with significant marrow edema. There is mild osseous retropulsion. There is [id number] spinal stenosis at L4-L5, some preserved subarachnoid space lateral recess stenosis bilaterally. There is also multilevel lumbar degenerative disk disease and also mild spondylosis. There is neural foramina compromise as stated, greatest at the left L3-L4 and bilaterally at L4-L5, so she was seen by the interventional radiologist, who did not recommend any vertebroplasty given the fracture is old and the neurosurgeon who did not recommend any surgical intervention. She was seen by Dr. Tripp who was injected her left sacroiliac joint. She was seen also by the neurologist. She is known to have Parkinson's disease and she was restarted on her Sinemet and in fact, she was discharged to [facility] to continue the process of rehabilitation. PHYSICAL EXAMINATION: GENERAL: On the day of discharge, she looked well and was clearly in no apparent respiratory distress, pale, but no jaundice, cyanosis or thyromegaly. No jugular venous distention. No lower limb edema. VITAL SIGNS: Her heart rate was 81, blood pressure 115/76, temperature was 97.6, respiratory rate was 17 and oxygen saturation was 92%. The rest of clinical exam is stable. LABORATORY DATA: Showed a white cell count of 6800, hemoglobin 12, hematocrit 36, MCV 97 and platelet count of 190,000. Serum sodium was 139, potassium 3.6, chloride 105, bicarbonate 26, anion gap of 8, BUN 16, creatinine 0.8, estimated GFR was 69 mL per minute. Her glucose was 91, calcium was 8.4. Total bilirubin, AST, ALT, alkaline phosphatase were normal. Total protein 6.6, albumin 3.3. DISCHARGE MEDICATIONS: She was discharged to [facility] to continue on following medications: Carbidopa/levodopa 25/100 one tablet twice a day, aripiprazole for Abilify 2.5 mg twice a day, cholecalciferol, vitamin D3 50,000 units capsule once a week, duloxetine 60 mg once a day, gabapentin 300 mg at bedtime, metoprolol tartrate 25 mg twice a day, ondansetron 4 mg every 6 hours, oxycodone/APAP 5/325 one tablet every 4 hours, paroxetine 30 mg once a day, potassium chloride for Klor-Con 20 mEq daily and trazodone 50 mg at bedtime. FINAL DISCHARGE DIAGNOSES: 1. L1 compression fracture with progressive height loss since 2017. She is not a candidate for vertebroplasty, according to Dr. Kline. 2. She has moderate to severe spinal stenosis at L4-L5. She also has multiple lumbar degenerative disk disease and mild spondylosis. 3. She has multiple other medical problems including: A. Parkinson's disease. B. Hypertension. C. Osteoarthritis and osteoporosis. D. Anxiety and bipolar disorder. MAGI KERNS MD DR: TREVON/katherine JOB#: [id number] / [id number]
== END 2019-07-21 14:15 | DRG 544 ==
LOC: 6 SOUTH 09:08 → 4 NORTH 07-20 17:52
PROVIDERS: ADMIT Internal Medicine; ATTEND Internal Medicine
DX: M48.56XA Collapsed vertebra, not elsewhere classified, lumbar region, initial encounter for fracture (principal); M81.0 Age-related osteoporosis without current pathological fracture; F02.80 Dementia in other diseases classified elsewhere, unspecified severity, without behavioral disturbance, psychotic disturbance, mood disturbance, and anxiety; F31.9 Bipolar disorder, unspecified; F41.9 Anxiety disorder, unspecified; G20 Parkinson's disease; G89.29 Other chronic pain; M40.205 Unspecified kyphosis, thoracolumbar region; I10 Essential (primary) hypertension; M47.816 Spondylosis without myelopathy or radiculopathy, lumbar region; M19.90 Unspecified osteoarthritis, unspecified site; Z20.828 Contact with and (suspected) exposure to other viral communicable diseases; M51.36 Other intervertebral disc degeneration, lumbar region; M48.05 Spinal stenosis, thoracolumbar region; M48.061 Spinal stenosis, lumbar region without neurogenic claudication; Z82.49 Family history of ischemic heart disease and other diseases of the circulatory system; Z98.42 Cataract extraction status, left eye; Z98.41 Cataract extraction status, right eye
CPT/HCPCS: 36415; 72148; 80053; 85027; 85610; J1030; J2270; J3490; 97116-GP; 97535-GO; G0378; U0003-CS